=== PATIENT | female | born 1950 | race Caucasian/White ===

== ENCOUNTER → 2018-10-08 09:59 | Outpatient (CLI) | payer MEDICARE, OTHER ==
[~2018-10-08 09:59] MED LIST: CHLORTHALIDONE25 MG PO; FUROSEMIDE20 MG PO; JANUVIA50 MG PO; K-DUR20 MEQ PO; PRAVACHOL20 MG PO; PREVACID30 MG PO; RANITIDINE HCL150 M1 PO; SINGULAIR10 MG PO
[2018-11-01 12:25] VITALS: BMI 29.1
== END | disposition home or self-care (01) ==
LOC: D.HCCARDIO 09:59
PROVIDERS: ATTEND Internal Medicine Cardiovascular Disease
DX: I20.9 Angina pectoris, unspecified (principal)

== ENCOUNTER 2018-11-01 11:20 | Outpatient (CLI) | payer MEDICARE, OTHER ==
[~2018-11-01] VITALS: Ht 167.6 cm; Wt 81.8 kg
--- NOTE | ~2018-11-01 | HEMODYNAMI ---
PATIENT:ELODIA FORBES MEDICAL RECORD: [id number] : 54 LOCATION:[facility] ADMISSION DATE: 11/01/18 Generatedon:11/01/201813:52 Patient name: ELODIA FORBES Patient #: [id number] SSN: [id number] : 1950 Date of study: 11/01/2018 Page: Of Hemodynamic Procedure Report Patient Data Patient Demographics Procedure consent was obtained First Name: ELODIA Gender: Female Last Name: ANDREI : 1950 Patient #: [id number] Age: 68 year(s) Race: SSN: [id number] Additional ID: [id number] Contact details [address]: [address] [place] [address] State: [place] City: [place] Zip code: [address] Past Medical History Allergies Allergen Reaction Date Comments Reported Codeine 11/01/2018 Admission Admission Data Admission Date: 11/01/2018 Admission Time: 11:20 Arrival Date: 11/01/2018 Arrival Time: 0:00 Admit Source: Other Insurance Payor: Medicare, Private health insurance [facility] #: [id number] Height (in.): 65.75 BSA: 1.91 (m2) Height (cm.): 167 BMI: 29.4 (kg/m2) Weight (lbs.): 180.78 Weight (kg.): 82 Lab Results Lab Result Date: 11/01/2018 Lab Result Time: 0:00 Biochemistry Name Units Result Min Max BUN mg/dl 19 --(----)*- 7 18 Creatinine mg/dl 1.1 --(--*-)-- 0.6 1.3 eGFR ml/min 53 *-(----)-- 90 120 NONAFRICAN CBC Name Units Result Min Max Hematocrit % 38.5 *-(----)-- 42 54 Hemoglobin g/dl 13.8 --(*---)-- 13.5 17.5 Procedure Procedure Types Cath Procedure Diagnostic Procedure [facility] Procedure Description Procedure Date Procedure Date: 11/01/2018 Procedure Start Time: 13:39 Procedure End Time: 13:49 Procedure Staff Name Function Saud Rhodes MD Performing Physician Carlos Bolden RT Monitor Keiry Toth RT Scrub Belem Campbell RN Nurse Indication Abnormal nuclear perfusion test Procedure Data Cath Procedure Fluoroscopy Diagnostic fluoroscopy Total fluoroscopy Time: 1.6 time: 1.6 min min Diagnostic fluoroscopy Total fluoroscopy dose: 260 dose: 260 mGy mGy Contrast Material Contrast Material Type Amount (ml) Isovue 300 39 Entry Location Entry Primary Successful Side Size Upsize Upsize Entry Closure Succes sful Closure Location (Fr) 1 (Fr) 2 (Fr) Remarks Device Remarks Femoral Right 5 Fr Exoseal artery Estimated blood loss: 5 ml Diagnostic catheters Device Type Used For End Catheter Placement MULTIPACK JL 4.0 5Fr Procedure catheter MULTIPACK 3DRC 5Fr Procedure catheter MULTIPACK Pigtail 5 Fr Procedure catheter Procedure Complications No complications Procedure Medications Medication Administration Route Dosage Oxygen etCO2 Nasal cannula 2 l/min Lidocaine 2% added to field 20 Heparin Flush Bag added to field 2 bags (1000units/500ml NS) 0.9% NaCl I.V. 100 ml/hr Versed I.V. 1 mg Fentanyl I.V. 50 mcg Versed I.V. 1 mg Hemodynamics Rest BSA: 1.91 (m2) HGB: 13.8 (g/dl) O2 Consumption: Estimated: 180.67 (ml/min) O2 Co nsumption indexed: Estimated:94.59 (ml/min/m) Heart Rate: 74 (bpm) Pressure Samples Time Site Value (mmHg) Purpose Heart Use Rate(bpm) 13:45 LV 122/-10,8 Snapshot 70 13:46 AO 129/51(82) Pullback 71 13:46 LV 129/3,11 Pullback 71 Gradients Valve Time Site 1 Site 2 Mean SEP/DFP Peak To Heart Use (mmHg) (sec/min) Peak Rate (mmHg) (bpm) Aortic 13:46 LV AO 4 11 0 71 129/3,11 129/51(82) Calculations Valve P-P Mean Valve Index Valve Source Name Gradient Area Flow (cm2) Aortic 0 4 0 4 Snapshots Pre Cath Intra NCS Post Cath Vital Signs Time Heart Resp SPO2 etCO2 NIBP (mmHg) Rhythm Pain Sedation Rate (ipm) (%) (mmHg) Status Level (bpm) 13:29:42 74 24 98 0 166/84(121) NSR 0 (11) 10(A) , No pain 13:34:09 70 19 96 23.2 141/65(117) NSR 0 (11) 10(A) , No pain 13:38:37 66 12 100 41.3 137/65(110) NSR 0 (11) 9(A) , No pain 13:43:05 69 11 100 39 134/61(101) NSR 0 (11) 9(A) , No pain 13:47:29 71 14 100 42 132/68(102) NSR 0 (11) 9(A) , No pain 13:52:02 71 14 100 41.3 136/65(103) NSR 0 (11) 10(A) , No pain Medications Time Medication Route Dose Verified Delivered Reason Notes Eff ectiveness by by 13:35:07 Oxygen etCO2 2 Saud Buffie used for Nasal l/min Carmelo Campbell RN procedure cannula 13:35:12 Lidocaine 2% added 20ml Saud Saud for local to vial Carmelo Rhodes MD anesthetic field 13:35:17 Heparin Flush added 2 Saud Saud used for Bag to bags Caremlo Rhodes MD procedure (1000units/500ml field NS) 13:35:25 0.9% NaCl I.V. 100 Saud Buffie Per ml/hr Carmelo Campbell RN physician 13:35:32 Versed I.V. 1 mg Saud Buffie for Carmelo Campbell RN sedation 13:35:37 Fentanyl I.V. 50 Saud Buffie for mcg Carmelo Campbell RN sedation 13:41:25 Versed I.V. 1 mg Saud Buffie for Carmelo Campbell RN sedation Procedure Log Time Note 13:12:12 Signed procedure consent form obtained from patient. 13:12:14 Procedure Status Elective Heart Cath (OP). 13:12:16 Time tracking: Regular hours (M-F 7:00 - 5:00) 13:12:23 Plan of Care:Hemodynamics will remain stable., Cardiac rhythm will remain stable., Comfort level will be maintained., Respiratory function will remain adequate., Patient/ family verbilizes understanding of procedure., Procedure tolerated without complication., Recovers from procedure without complications.. 13:12:31 H&P Date Dictated: 11/01/2018 Within 30 days and on chart., H&P Addendum completed by physician on day of procedure. (MUST COMPLETE FOR ALL OUTPATIENTS). 13:14:08 Patient Weight : 180.78 lbs 13:14:12 Patient Height : 65.75 inches 13:14:16 Carlos Kimi RT(R) sent for patient. Start room use. 13:14:20 Patient allergic to Codeine 13:14:52 Lab Result : BUN 19 mg/dl 13:14:52 Lab Result : Creatinine 1.1 mg/dl 13:14:52 Lab Result : eGFR NONAFRICAN 53 ml/min 13:14:52 Lab Result : Hemoglobin 13.8 g/dl 13:14:52 Lab Result : Hematocrit 38.5 % 13:18:58 Patient received from Pre/Post Procedure Room to CCL 1 Alert and oriented. Tansferred to table in Supine position. 13:18:59 Warm blankets applied, and josé miguel hugger turned on for patient comfort. 13:18:59 Correct patient and procedure confirmed by team. 13:19:00 ECG and BP/O2 sat monitors applied to patient. 13:28:13 Vital chart was started 13:28:15 Baseline sample Acquired. 13:28:18 Rhythm: sinus rhythm 13:28:18 Full Disclosure recording started 13:28:19 Pre-procedure instructions explained to patient. 13:28:20 Pre-op teaching completed and patient verbalized understanding. 13:28:21 Family in waiting room. 13:28:23 Patient NPO since Midnight. 13:28:24 Is the patient allergic to Iodine/contrast media? No. 13:28:25 Is patient on blood thinner?No 13:31:03 ACC The patient was administered the following blood thiners within the last 24 hours: None 13:31:05 Patient diabetic? Yes. 13:31:06 If diabetic: On Metformin? No 13:31:08 Previous problem with sedation/anesthesia? No ? 13:31:09 Snore? Yes 13:31:10 Sleep apnea? Yes 13:31:11 Deviated septum? No 13:31:12 Opens mouth fully? Yes 13:31:13 Sticks out tongue? Yes 13:31:15 Airway obstruction? No ? 13:31:17 Dentures? No ? 13:31:50 Pre procedure: right dorsailis pedis pulse 2+ Normal; easily identifiable; not easily obliterated 13:31:52 Patient pain scale 0/10 ?. 13:32:07 IV patent on arrival in right antecubital with 0.9% NaCl at [facility]. 13:32:09 Lab results completed and on chart. 13:32:12 Right groin area was prepped with chlora-prep and draped in sterile fashion 13:32:13 Alarms reviewed by R. N. 13:32:14 Sharps counted by scrub and verified by R.N. 13:32:15 Use device set Femoral Dx 13:32:16 ACIST Syringe (22473) opened to sterile field. 13:32:17 Bag Decanter (2002S) opened to sterile field. 13:32:17 Medline Cath Pack ([id number]) opened to sterile field. 13:32:18 ACIST Hand Control (87835) opened to sterile field. 13:32:18 ACIST Manifold (08712) opened to sterile field. 13:32:19 Tegaderm 4 x 4 (1626W) opened to sterile field. 13:32:20 DIAGNOSTIC Multipack 5Fr catheter set ([id number]) opened to sterile field. 13:32:21 EMERALD Guide Wire (061-446) opened to sterile field. 13:32:21 SHEATH 5FR Tye (CTR561) opened to sterile field. 13:32:27 Physician arrived 13:32:28 --------ALL STOP TIME OUT------ 13:32:28 Final Timeout: patient, procedure, and site verified with staff and physician. All members of the team are in agreement. 13:32:30 Right groin site verified by team. 13:32:34 Fire Safety Assessment: A--An alcohol-based skin anteseptic being used preoperatively., C--Open oxygen or nitrous oxide is being used., D--An ESU, laser, or fiber-optic light is being used. 13:33:52 Physical assessment completed. ASA score P 2 - A patient with mild systemic disease as per Saud Rhodes MD. 13:33:55 3a) 45-59 Moderately reduced kidney function. 13:34:06 Maximum allowable contrast dose (3.7 X eGFR X 0.75)147 ml. 13:34:10 Sedation plan: IV Moderate Sedation Medication:Versed, Fentanyl 13:35:07 Oxygen 2 l/min etCO2 Nasal cannula was administered by Belem Campbell RN; used for procedure; 13:35:12 Lidocaine 2% 20ml vial added to field was administered by Saud Rhodes MD; for local anesthetic; 13:35:17 Heparin Flush Bag (1000units/500ml NS) 2 bags added to field was administered by Saud Rhodes MD; used for procedure; 13:35:25 0.9% NaCl 100 ml/hr I.V. was administered by Belem Campbell RN; Per physician; 13:35:32 Versed 1 mg I.V. was administered by Belem Campbell RN; for sedation; 13:35:37 Fentanyl 50 mcg I.V. was administered by Belem Campbell RN; for sedation; 13:37:29 Zero performed for pressure channel P1 13:39:56 Procedure started. 13:39:59 Local anesthetic to right femoral artery with Lidocaine 2% by Saud Rhodes MD.INITIAL ACCESS ONLY 13:40:06 A 5 Fr sheath was inserted into the Right Femoral artery 13:40:17 A MULTIPACK JL 4.0 5Fr catheter was advanced over the wire and used for Procedure. 13:41:11 LCA angiography performed. 13:41:25 Versed 1 mg I.V. was administered by Belem Campbell RN; for sedation; 13:42:11 Catheter exchanged over wire. 13:42:16 A MULTIPACK 3DRC 5Fr catheter was advanced over the wire and used for Procedure. 13:43:35 RCA angiography performed. 13:43:37 ACCDominant side:Left 13:44:16 Catheter exchanged over wire. 13:44:20 A MULTIPACK Pigtail 5 Fr catheter was advanced over the wire and used for Procedure. 13:45:47 LV gram done using MERCEDES 13:45:49 Injector settings: Ml/sec: 10, Volume: 20, 13:45:51 LV hemodynamics recorded. 13:46:05 EF : 60 % 13:46:15 Catheter removed. 13:46:16 EXOSEAL 5Fr (EX500) opened to sterile field. 13:46:23 Sheath removed intact; hemostasis achieved with Exoseal to the Right Femoral artery. 13:46:26 Procedure ended.(Physican Out) 13:46:38 Fluoroscopy time 01.60 minutes. 13:46:41 Fluoroscopy dose: 260 mGy 13:46:41 Flurop Dose total: 260 13:46:51 Dose Area Product 435950 mGy/cm. 13:46:54 Contrast amount:Isovue 300 39ml. 13:46:56 Maximum allowable dose exceeded? No. 13:46:57 Sharps counted by scrub and verified by R.N. 13:46:58 Insertion/operative site no bleeding no hematoma. 13:47:00 Post-op/insertion site Right Femoral artery dressed using a 4 x 4 and Tegaderm. 13:47:03 Post right femoral artery:stable, soft, clean and dry 13:47:05 Post Procedure Pulses reassessed and unchanged 13:47:08 Post-procedure physical assessment completed. ASA score P 2 - A patient with mild systemic disease as per Saud Rhodes MD. 13:47:11 Post procedure rhythm: unchanged. 13:47:14 Estimated blood loss: 5 ml 13:47:22 Post procedure instruction explained to patient.Patient verbalizes understanding. 13:47:23 Patient needs reinforcement of post procedure teaching. 13:48:52 Procedure and supply charges have been captured, reviewed, submitted and are correct. 13:48:55 Procedure Complication : No complications 13:48:57 Vital chart was stopped 13:48:57 See physician's report for complete and final results. 13:49:03 Report given to Pre/Post Procedure Room. 13:49:06 Patient transfered to Pre/Post Procedure Room with Stretcher. 13:49:07 Procedure ended. 13:49:07 Full Disclosure recording stopped 13:49:16 End room use (Document Last) 13:50:14 Insurance Payor : Private health insurance, Medicare 13:50:37 Arrival Date: 11/01/2018 12:00:00 AM 13:50:38 Admit Source: Other 13:51:51 Indication : Abnormal nuclear perfusion test Device Usage Item Name Manufacture Quantity Catalog Hospital Part Current Minimal L ot# / Number Charge Number Stock Stock Serial# Code ACIST Acist 1 23604 [id number] [id number] 468232 20 Exosite (87299) [employer] Bag Microtek 1 132413 21904 323635 5 Decanter Medical Inc. (2002S) Medline Medline 1 [id number] 483779 33785 037145 5 Cath Pack ([id number]) ACIST Hand Acist 1 48634 642836 168460 225993 5 Control Medical (21098) Systems Inc ACIST Acist 1 47129 661058 839160 873441 5 Manifold Medical (49396) Systems Inc Tegaderm 4 3M 1 1626W 053425 551411 654712 5 x 4 (1626W) DIAGNOSTIC Cardinal 1 FJ0081 585692 19923 199219 30 Multipack Health 5Fr catheter set (LW4792) EMERALD Cardinal 1 794-898 375046 614027 638077 5 Guide Wire Health (248-408) SHEATH 5FR Terumo 1 BVE099 703700 780426 567138 5 Tye (MWX957) MULTIPACK Cardinal 1 416760 5 JL 4.0 5Fr Health catheter MULTIPACK Cardinal 1 704671 5 3DRC 5Fr Health catheter MULTIPACK Cardinal 1 154825 5 Pigtail 5 Health Fr catheter EXOSEAL 5Fr Cardinal 1 EX500 201050 011355 157454 10 (EX500) Health Signature Audit Irwin Stage Time Signature Unsigned Intra-Procedure 11/01/2018 Carlos Bolden 1:52:46 PM RT(R) Signatures Performing Physician : Signature : Saud Rhodes MD Date : Time : Monitor : Carlos Bolden RT Signature : Date : Time : Nurse : Belem Campbell RN Signature : Date : Time : [address] [place] [address]
[2018-11-01] MEDS ORDERED: SINGULAIR10 MG PO (11:52)
[2018-11-01] MEDS ORDERED: FUROSEMIDE20 MG PO (11:53)
[2018-11-01] MEDS ORDERED: CHLORTHALIDONE25 MG PO (11:54)
[2018-11-01] MEDS ORDERED: PRAVACHOL20 MG PO (11:54)
[2018-11-01] MEDS ORDERED: K-DUR20 MEQ PO (11:54)
[2018-11-01] MEDS ORDERED: RANITIDINE HCL150 M1 PO (11:55)
[2018-11-01] MEDS ORDERED: PREVACID30 MG PO (11:55)
[2018-11-01] MEDS ORDERED: JANUVIA50 MG PO (11:56)
[2018-11-01 12:16] LABS: BASOPHILS 0.3 % (0-2); EOSINOPHILS 1.3 % (0-7); HEMATOCRIT 38.5 % (36.0-48.0); HEMOGLOBIN 13.8 g/dL (12-16); IMMATURE GRANULOCYTES 0.3 % (0-5); LYMPHOCYTES 31.9 % (15-50); MCH 28.7 pg (26.0-34.0); MCHC 35.8 g/dL (31.0-37.0); MEAN PLATELET VOLUME 9.8 fL (7.4-10.4); MONOCYTES 9.1 % (2-11); NEUTROPHILS 57.1 % (40-80); PLATELET COUNT 231 10x3/uL (130-400); RBC 4.81 10x6/uL (4.00-5.40); RDW 13.9 % (11.5-14.5); WBC 7.8 10x3/uL (4.8-10.8)
[2018-11-01 12:25] VITALS: BP 140/76; Ht 167.6 cm; Wt 81.8 kg
[2018-11-01 12:32] LABS: ANION GAP 12.2 mmol/L (8-16); CALCIUM 9.3 mg/dL (8.5-10.1); CARBON DIOXIDE 32.8 mmol/L (21.0-32.0); CHOL - HDL RATIO 3.6 ratio (2.3-4.1); CREATININE - SERUM 1.1 mg/dL (0.6-1.3); LDL-HDL RATIO 1.7 ratio (1.5-3.5)
--- NOTE | 2018-11-01 14:08 | NUR ---
RECEIVED PT FROM PERMIT AGENT. PT DROWSY, DENIES ANY C/O PAIN OR NAUSEA. DRESSING IS CDI TO RIGHT GROIN, PEDAL PULSES PALPABLE. HOB IS FLAT, VSS. AT BEDSIDE. CALL LIGHT IN REACH.
--- NOTE | 2018-11-01 14:17 | NUR ---
DR JI HAS ROUNDED ON PT. NSR, DENIES ANY C/O CHEST PAIN. DRESSING IS CDI TO RIGHT GROIN, PEDAL PULSES ARE PALPABLE. HOB IS FLAT. VSS.
--- NOTE | 2018-11-01 14:45 | NUR ---
DRESING CDI RIGHT GROIN, PEDAL PULSES PALPABLE. HOB IS FLAT, PT SLEEPING INTERMITTENTLY. VSS, AT BEDSIDE.
--- NOTE | 2018-11-01 15:20 | NUR ---
1500 PT SLEEPING, AWAKENS EASILY TO VERBAL STIMULI. DENIES ANY C/O. DRESSING CDI RIGHT GROIN, PEDAL PULSES PALPABLE. 1515 HOB ELEVATED AND SANDWICH AND PO FLUIDS SERVED. PT IS ALERT AND DENIES ANY C/O. DRESSING CDI, PULSES PALPABLE. VSS.
--- NOTE | 2018-11-01 16:39 | NUR ---
1600 PT HAS DEJAN SANDWICH AND PO FLUIDS WITH NO C/O NAUSEA. DRESSING CDI TO RIGHT GROIN, PEDAL PULSES PALPABLE. PT IS ALERT AND DENIES ANY C/O CHEST PAIN, VSS. 1630 IV DC'D WITH CATH INTACT AND PT IS DRESSING FOR DC TO HOME. DRESSING CDI RIGHT GROIN, PULSES PALPABLE. DENIES ANY NV DEFICIT.
--- NOTE | 2018-11-01 17:25 | NUR ---
1655 PT HAS DRESSED FOR DC TO HOME. PT HAS AMBULTED TO THE BATHROOM AND VOIDED QS. DENIES ANY C/O PAIN OR NAUSEA. DC INSTRUCTIONS REVIEWED AND PT AND VERBALIZE UNDERSTANDING. PT ESCORTED TO PRIVATE AUTO VIA WC BY NURSE WITH DRIVING HER HOME.
== END 2018-11-01 16:55 | disposition home or self-care (01) ==
LOC: D.CATH 11:20
PROVIDERS: ATTEND Internal Medicine Cardiovascular Disease
DX: R94.30 Abnormal result of cardiovascular function study, unspecified (principal); I10 Essential (primary) hypertension; E11.9 Type 2 diabetes mellitus without complications